=== PATIENT | male | born 1985 | race African-American/Black ===

== ENCOUNTER 2019-07-10 08:47 | Emergency (ER) | payer SELFPAY ==
[2019-07-10 09:05] VITALS: BP 131/81
[2019-07-10] MEDS ORDERED: KETOROLAC TROMETHAMINE 60 MG/2 ML VIAL IM ONE (09:13)
--- NOTE | 2019-07-10 09:15 | ED Physician Documentation ---
Sore Throat/Dental Pain - HISTORIAN Historian: patient - HPI Stated Complaint: Dental pain Chief Complaint: Dental Pain Further Comments: yes (33 year old male presents with complaints of dental pain from fractured tooth. Fractured occurred over 1 year ago; reports pain x 2 days. States he has not used any pain medication today.) - ROS CONST: no problems CVS/RESP: none GI/: denies: problems urinating, nausea, vomiting, other MS/SKIN/LYMPH: denies: muscle aches, rash, leg swelling, ankle swelling, other NEURO/PSYCH: none - PAST HX Past History: none Allergies/Adverse Reactions: Allergies Allergy/AdvReac Type Severity Reaction Status Date / Time No Known Allergies Allergy Verified 07/10/19 09:03 Home Medications: Ambulatory Orders Medication Instructions Recorded Ketorolac Tromethamine [Toradol] 10 mg PO TID #15 tablet 07/10/19 - SOCIAL HX Smoking History: cigarettes - FAMILY HX Family History: No - VITAL SIGNS Vital Signs: Vital Signs Temp Pulse Resp BP Pulse Ox 98.7 F 80 14 131/81 99 07/10/19 08:47 07/10/19 08:47 07/10/19 08:47 07/10/19 08:47 07/10/19 08:47 - REVIEWED ASSESSMENTS Nursing Assessment Reviewed: Yes Vitals Reviewed: Yes ED Results Lab/Radiology - Orders Orders: ED Orders Category Date Time Status Ketorolac Tromethamine [Toradol] Med 07/10/19 09:13 Once 60 mg IM NOW ONE Dental Pain Physical Exam - EXAM General Appearance: mild distress Eyes: eyes nml inspection, PERRL Mouth/Throat: lips nml, gums nml, pharynx nml, voice nml, no drooling, no air way problems, no thrush, membranes nml, dental tenderness (left upper back molar with fracture noted; no abscess or erythema noted. ). No: gum swelling around teeth, widespread dental decay Respiratory: no resp. distress CVS: reg. rate & rhythm Neuro/Psych: none Discharge Clincal Impression: Pain, dental Prescriptions: Ketorolac Tromethamine [Toradol] 10 mg PO TID #15 tablet Referrals: Primary Doctor,No [Primary Care Provider] - 2 Days Additional Instructions: Tylenol 650-1000mg every 4 hours as needed for pain, limit your dose to 4G in 24 hours. Over the counter DenTek - follow package directions. Over the counter Orajel as needed for pain maintenance superintendent your prescription today for pain medication See your dentist as soon as possible Condition: Stable Disposition: 01 HOME, SELF-CARE Decision to Admit: NO Decision Time: 09:15
== END 2019-07-10 09:25 | disposition home or self-care (01) ==
LOC: ED 08:47
DX: K08.89 Other specified disorders of teeth and supporting structures (principal)
CPT/HCPCS: 96372; 99282; 99284; J1885